=== PATIENT | male | born 1950 | race Caucasian/White ===

== ENCOUNTER 2021-09-14 18:10 | Observation (INO) ==
[2021-09-14] MEDS ORDERED: Furosemide 40 MG/4 ML VIAL IVP ONE (18:24)
[2021-09-14] MEDS ORDERED: methylPREDNISolone 125 MG/2 ML VIAL IVP ONE (18:24)
[2021-09-14] MEDS ORDERED: Ipratropium/Albuterol Neb 3 ML IH ONE (18:24)
[2021-09-14] MEDS ORDERED: Azithromycin 500 MG in 0.9 % Sodium Chloride 250 ML IVPB ONE (18:24)
[2021-09-14] MEDS ORDERED: cefTRIAXone 2,000 MG in 0.9 % Sodium Chloride 10 ML IVP ONE (18:24)
[2021-09-14 18:52] LABS: Basophils % 0.3 %; Eosinophils # 0.2 K/mcL (0.0-0.6); Eosinophils % 2.3 %; Hemoglobin 16.7 g/dL (12.9-16.9); Immature Granulocytes % 0.5 % (0-4); Lymphocytes # 0.3 K/mcL (0.6-4.6); Lymphocytes % 3.5 %; Mean Corpuscular HGB Conc 32.1 g/dL (31.6-35.5); Mean Corpuscular Hemoglobin 31.9 pg (28.0-33.3); Mean Corpuscular Volume 99.2 fL (83.0-100.0); Mean Platelet Volume 11.7 fL (9.4-12.4); Monocytes # 0.7 K/mcL (0.0-1.3); Monocytes % 7.7 %; Neutrophils # 7.5 K/mcL (1.6-8.9); Platelet Count 100 K/mcL (140-400); Red Blood Count 5.24 M/mcL (4.19-5.50); Red Cell Distribution Width 15.3 % (11.5-14.5); Segmented Neutrophils % 85.7 %; White Blood Count 8.8 K/mcL (4.3-11.1)
[2021-09-14 18:58] LABS: INR 1.2; Prothrombin Time 13.7 Seconds (9.4-12.1)
[2021-09-14 19:01] LABS: Activated Partial Thrombo Time 31.4 Seconds (26.0-36.0)
[2021-09-14 19:13] LABS: Alanine Aminotransferase 19 Units/L (7-52); Albumin 3.7 g/dL (3.5-5.7); Albumin/Globulin Ratio 1.3 (1.1-2.2); Alkaline Phosphatase 65 Units/L (34-104); Aspartate Amino Transferase 13 Units/L (13-39); BUN/Creatinine Ratio 11 (6-26); Bilirubin,Direct 0.2 mg/dL (0.0-0.2); Bilirubin,Indirect 0.6 mg/dL (0.0-1.0); Bilirubin,Total 0.8 mg/dL (0.3-1.0); Blood Urea Nitrogen 10 mg/dL (8-23); Calcium 8.9 mg/dL (8.6-10.3); Carbon Dioxide 40 mEq/L (23-29); Chloride 95 mEq/L (98-107); Globulin 2.9 g/dL (2.4-3.5); Glucose 134 mg/dL (70-105); Osmolality,Calculated 291 (280-300); Potassium 3.4 mEq/L (3.5-5.1); Sodium 140 mEq/L (136-145); Total Protein 6.6 g/dL (6.4-8.9); Troponin I < 0.03 ng/mL (< 0.04); eGFR For African Americans > 60 (> 60); eGFR For Non-African Americans > 60 (> 60)
[2021-09-14] MEDS ORDERED: Nitroglycerin 0.4 MG TAB.SUBL SL PRN ×2 (22:14→22:48)
[2021-09-14] MEDS ORDERED: Ibuprofen 400 MG TABLET PO PRN (22:48)
[2021-09-14] MEDS ORDERED: Albuterol 2.5 MG/3 ML NEBULIZER IH PRN (22:48)
[2021-09-14] MEDS ORDERED: Acetaminophen 325 MG TABLET PO PRN (22:48)
[2021-09-14] MEDS ORDERED: Mag Hydrox/Al Hydrox/Simeth 30 ML UDC PO PRN (22:48)
[2021-09-14] MEDS ORDERED: Melatonin 3 MG TABLET PO PRN (22:48)
[2021-09-14] MEDS ORDERED: MOM Conc 10 ML UD.LIQ PO PRN (22:48)
[2021-09-14] MEDS ORDERED: Naloxone 0.4 MG/ML INJ IVP PRN (22:48)
[2021-09-14] MEDS: Ipratropium/Albuterol Neb 3 ML IH SCH (23:03)
[2021-09-14] MEDS: Potassium Chloride Elixir 20 MEQ/15 ML UDC PO SCH (23:05)
[2021-09-15] MEDS: MethylPREDNISolone 40 MG/ML VIAL IVP SCH ×3 (00:07→17:05)
[2021-09-15] MEDS: Ipratropium/Albuterol Neb 3 ML IH SCH ×2 (04:10→09:29)
[2021-09-15] MEDS ORDERED: Furosemide 20 MG/2 ML VIAL IVP SCH (07:00)
[2021-09-15] MEDS: Budesonide/Formoterol 160/4.5 1 PUFF INH IH SCH ×2 (09:29→21:21)
[2021-09-15] MEDS: Aspirin Enteric Coated 81 MG Tablet PO SCH (10:06)
[2021-09-15] MEDS: atenoloL 50 MG TABLET PO SCH (10:06)
[2021-09-15] MEDS: Potassium Chloride Elixir 20 MEQ/15 ML UDC PO SCH ×2 (10:06→20:41)
[2021-09-15] MEDS: hydroCHLOROthiazide 25 MG TABLET PO SCH (10:06)
[2021-09-15] MEDS ORDERED: acetaZOLAMIDE 250 MG in Water for inj. (sterile) 2.5 ML IVP ONE (11:21)
[2021-09-15] MEDS ORDERED: Ipratropium/Albuterol Neb 3 ML IH PRN (11:39)
[2021-09-15] MEDS ORDERED: Perflutren Lipid Microsphere 1.3 ML in 0.9 % Sodium Chloride 8.7 ML IVP PRN (11:40)
[2021-09-15] MEDS: acetaZOLAMIDE 250 MG TABLET PO SCH (13:16)
[2021-09-15] MEDS ORDERED: cefTRIAXone 2,000 MG in 0.9 % Sodium Chloride Mini Bag 100 ML IVPB SCH (15:00)
[2021-09-15] MEDS: Azithromycin 500 MG in 0.9 % Sodium Chloride 250 ML IVPB SCH (15:43)
[2021-09-16] MEDS: MethylPREDNISolone 40 MG/ML VIAL IVP SCH ×3 (00:10→18:15)
[2021-09-16] MEDS: *HR* Enoxaparin 40 MG/0.4 ML SYRINGE SQ SCH (06:25)
[2021-09-16 06:39] LABS: Basophils % 0.1 %; Hematocrit 53.2 % (37.5-50.1); Hemoglobin 16.3 g/dL (12.9-16.9); Immature Granulocytes % 0.7 % (0-4); Lymphocytes # 0.2 K/mcL (0.6-4.6); Mean Corpuscular HGB Conc 30.6 g/dL (31.6-35.5); Mean Corpuscular Hemoglobin 30.9 pg (28.0-33.3); Mean Corpuscular Volume 100.9 fL (83.0-100.0); Mean Platelet Volume 12.3 fL (9.4-12.4); Monocytes # 0.4 K/mcL (0.0-1.3); Monocytes % 2.9 %; Neutrophils # 14.6 K/mcL (1.6-8.9); Platelet Count 107 K/mcL (140-400); Red Blood Count 5.27 M/mcL (4.19-5.50); Red Cell Distribution Width 14.6 % (11.5-14.5); Segmented Neutrophils % 95.3 %; White Blood Count 15.3 K/mcL (4.3-11.1)
[2021-09-16 07:03] LABS: BUN/Creatinine Ratio 20 (6-26); Blood Urea Nitrogen 17 mg/dL (8-23); Calcium 9.5 mg/dL (8.6-10.3); Carbon Dioxide 38 mEq/L (23-29); Chloride 98 mEq/L (98-107); Chol/HDL Ratio 3.1 (0-4.9); Cholesterol 159 mg/dL (< 200); Glucose 137 mg/dL (70-105); HDL Cholesterol 51 mg/dL (40-59); LDL Cholesterol,Calculated 96 mg/dL (< 100); Magnesium 2.2 mg/dL (1.6-2.6); Osmolality,Calculated 292 (280-300); Potassium 4.7 mEq/L (3.5-5.1); Sodium 139 mEq/L (136-145); Triglycerides 62 mg/dL (< 150); eGFR For African Americans > 60 (> 60); eGFR For Non-African Americans > 60 (> 60)
[2021-09-16 07:10] LABS: Platelet Estimate Slight Decrease (Normal)
[2021-09-16] MEDS: Budesonide/Formoterol 160/4.5 1 PUFF INH IH SCH ×2 (07:45→22:15)
[2021-09-16] MEDS: Aspirin Enteric Coated 81 MG Tablet PO SCH (10:10)
[2021-09-16] MEDS: hydroCHLOROthiazide 25 MG TABLET PO SCH (10:11)
[2021-09-16] MEDS: Potassium Chloride Elixir 20 MEQ/15 ML UDC PO SCH ×2 (10:11→21:55)
[2021-09-16] MEDS: acetaZOLAMIDE 250 MG TABLET PO SCH (10:11)
[2021-09-16] MEDS: atenoloL 50 MG TABLET PO SCH (10:11)
[2021-09-16] MEDS: Isosorbide MONOnitrate (24 HR) 30 MG TAB.ER.24H PO SCH (11:28)
[2021-09-16] MEDS: Nicotine 21 MG PATCH.TD24 TD SCH (11:29)
[2021-09-16] MEDS: Azithromycin 500 MG in 0.9 % Sodium Chloride 250 ML IVPB SCH (16:29)
[2021-09-16] MEDS: Ondansetron ODT 4 MG TAB.RAPDIS SL PRN (22:15)
[2021-09-17] MEDS: MethylPREDNISolone 40 MG/ML VIAL IVP SCH ×2 (02:15→10:13)
[2021-09-17] MEDS: *HR* Enoxaparin 40 MG/0.4 ML SYRINGE SQ SCH (06:51)
[2021-09-17] MEDS: Ondansetron ODT 4 MG TAB.RAPDIS SL PRN (07:00)
[2021-09-17 07:14] LABS: Hematocrit 54.7 % (37.5-50.1); Hemoglobin 16.9 g/dL (12.9-16.9); Mean Corpuscular HGB Conc 30.9 g/dL (31.6-35.5); Mean Corpuscular Hemoglobin 31.6 pg (28.0-33.3); Mean Corpuscular Volume 102.4 fL (83.0-100.0); Red Blood Count 5.34 M/mcL (4.19-5.50); Red Cell Distribution Width 14.9 % (11.5-14.5); White Blood Count 15.3 K/mcL (4.3-11.1)
[2021-09-17 07:24] LABS: Platelet Count 40 K/mcL (140-400)
[2021-09-17 07:47] LABS: BUN/Creatinine Ratio 25 (6-26); Blood Urea Nitrogen 27 mg/dL (8-23); Calcium 9.9 mg/dL (8.6-10.3); Carbon Dioxide 40 mEq/L (23-29); Chloride 96 mEq/L (98-107); Glucose 141 mg/dL (70-105); Magnesium 2.4 mg/dL (1.6-2.6); Osmolality,Calculated 295 (280-300); Potassium 5.4 mEq/L (3.5-5.1); Sodium 139 mEq/L (136-145); eGFR For African Americans > 60 (> 60); eGFR For Non-African Americans > 60 (> 60)
[2021-09-17 08:17] LABS: Lymphocytes # 0.3 K/mcL (0.6-4.6); Monocytes # 0.6 K/mcL (0.0-1.3); Neutrophils # 14.4 K/mcL (1.6-8.9); Platelet Estimate Marked Decrease (Normal)
[2021-09-17] MEDS ORDERED: Isosorbide MONOnitrate (24 HR) 30 MG TAB.ER.24H PO SCH (09:00)
[2021-09-17] MEDS: Budesonide/Formoterol 160/4.5 1 PUFF INH IH SCH (09:15)
[2021-09-17 09:18] VITALS: RESP 18
[2021-09-17] MEDS: Nicotine 21 MG PATCH.TD24 TD SCH (10:12)
[2021-09-17] MEDS: acetaZOLAMIDE 250 MG TABLET PO SCH (10:14)
[2021-09-17] MEDS: Potassium Chloride Elixir 20 MEQ/15 ML UDC PO SCH (10:14)
[2021-09-17] MEDS: atenoloL 50 MG TABLET PO SCH (10:14)
[2021-09-17] MEDS: Aspirin Enteric Coated 81 MG Tablet PO SCH (10:14)
[2021-09-17] MEDS: Isosorbide MONOnitrate (24 HR) 30 MG TAB.ER.24H PO SCH (10:16)
[2021-09-17 10:43] VITALS: BP 130/75; PULSE 69; TEMP 98.7; O2SAT 94
[2021-09-17] MEDS ORDERED: hydroCHLOROthiazide 25 MG TABLET PO SCH (17:00)
== END 2021-09-17 13:12 | disposition short-term general hospital (02) ==
LOC: INPPIK 18:10 → EMEROOPIK 18:10 → INPPIK 21:04
PROVIDERS: ADMIT Internal Medicine; ATTEND Internal Medicine

== ENCOUNTER 2021-12-16 16:45 | Inpatient (IN) ==
[2021-12-16] MEDS ORDERED: methylPREDNISolone 125 MG/2 ML VIAL IVP ONE (17:17)
[2021-12-16] MEDS ORDERED: Ipratropium/Albuterol Neb 3 ML IH ONE (17:19)
[2021-12-16 17:39] LABS: Basophils # 0.1 K/mcL (0.0-0.2); Basophils % 0.2 %; Hematocrit 49.7 % (37.5-50.1); Hemoglobin 16.6 g/dL (12.9-16.9); Immature Granulocytes % 1.1 % (0-4); Lymphocytes # 0.3 K/mcL (0.6-4.6); Lymphocytes % 1.2 %; Mean Corpuscular HGB Conc 33.4 g/dL (31.6-35.5); Mean Corpuscular Hemoglobin 31.3 pg (28.0-33.3); Mean Corpuscular Volume 93.8 fL (83.0-100.0); Mean Platelet Volume 11.6 fL (9.4-12.4); Monocytes # 2.3 K/mcL (0.0-1.3); Neutrophils # 20.2 K/mcL (1.6-8.9); Red Cell Distribution Width 14.6 % (11.5-14.5); Segmented Neutrophils % 87.5 %; White Blood Count 23.1 K/mcL (4.3-11.1)
[2021-12-16 17:40] LABS: Platelet Count 82 K/mcL (140-400)
[2021-12-16 17:58] LABS: BUN/Creatinine Ratio 14 (6-26); Blood Urea Nitrogen 10 mg/dL (8-23); Calcium 8.9 mg/dL (8.6-10.3); Carbon Dioxide 36 mEq/L (23-29); Chloride 90 mEq/L (98-107); Glucose 116 mg/dL (70-105); Osmolality,Calculated 280 (280-300); Potassium 3.1 mEq/L (3.5-5.1); Sodium 135 mEq/L (136-145); eGFR For African Americans > 60 (> 60); eGFR For Non-African Americans > 60 (> 60)
[2021-12-16 17:59] LABS: Troponin I < 0.03 ng/mL (< 0.04)
[2021-12-16] MEDS ORDERED: Furosemide 40 MG/4 ML VIAL IVP ONE (18:09)
[2021-12-16] MEDS ORDERED: Azithromycin 500 MG in 0.9 % Sodium Chloride 250 ML IVPB ONE (18:50)
[2021-12-16] MEDS ORDERED: cefTRIAXone 1,000 MG in 0.9 % Sodium Chloride Mini Bag 100 ML IVPB ONE (18:50)
[2021-12-16] MEDS ORDERED: Acetaminophen 325 MG TABLET PO PRN ×2 (19:32→21:08)
[2021-12-16] MEDS ORDERED: Ondansetron 4 MG/2 ML VIAL IVP PRN ×2 (19:32→21:08)
[2021-12-16] MEDS ORDERED: Naloxone 0.4 MG/ML INJ IVP PRN ×2 (19:32→21:08)
[2021-12-16] MEDS ORDERED: Ipratropium/Albuterol Neb 3 ML IH PRN ×2 (19:35→21:08)
[2021-12-16] MEDS ORDERED: Potassium Chloride Elixir 20 MEQ/15 ML UDC PO ONE ×2 (19:51→21:08)
[2021-12-16] MEDS ORDERED: Albuterol 2.5 MG/3 ML NEBULIZER IH PRN (21:08)
[2021-12-16] MEDS: Budesonide/Formoterol 80/4.5 1 PUFF INH IH SCH (21:27)
[2021-12-17] MEDS ORDERED: methylPREDNISolone 125 MG/2 ML VIAL IVP SCH
[2021-12-17] MEDS: methylPREDNISolone 125 MG/2 ML VIAL IVP SCH ×4 (01:09→21:03)
[2021-12-17 07:13] LABS: Basophils % 0.2 %; Eosinophils # 0.1 K/mcL (0.0-0.6); Eosinophils % 0.3 %; Hematocrit 52.1 % (37.5-50.1); Hemoglobin 17.1 g/dL (12.9-16.9); Immature Granulocytes % 0.6 % (0-4); Lymphocytes % 0.6 %; Mean Corpuscular HGB Conc 32.8 g/dL (31.6-35.5); Mean Corpuscular Hemoglobin 31.3 pg (28.0-33.3); Mean Corpuscular Volume 95.4 fL (83.0-100.0); Monocytes # 0.7 K/mcL (0.0-1.3); Monocytes % 2.9 %; Neutrophils # 22.8 K/mcL (1.6-8.9); Red Blood Count 5.46 M/mcL (4.19-5.50); Red Cell Distribution Width 14.6 % (11.5-14.5); Segmented Neutrophils % 95.4 %; White Blood Count 23.9 K/mcL (4.3-11.1)
[2021-12-17 07:24] LABS: INR 1.4
[2021-12-17 07:27] LABS: Basophils # 0.1 K/mcL (0.0-0.2); Lymphocytes # 0.1 K/mcL (0.6-4.6); Platelet Count 49 K/mcL (140-400)
[2021-12-17 08:03] LABS: BUN/Creatinine Ratio 13 (6-26); Blood Urea Nitrogen 12 mg/dL (8-23); Calcium 9.2 mg/dL (8.6-10.3); Carbon Dioxide 43 mEq/L (23-29); Chloride 87 mEq/L (98-107); Glucose 157 mg/dL (70-105); Magnesium 1.8 mg/dL (1.6-2.6); Osmolality,Calculated 291 (280-300); Phosphorous 4.7 mg/dL (2.7-4.5); Potassium 3.2 mEq/L (3.5-5.1); Sodium 139 mEq/L (136-145); eGFR For African Americans > 60 (> 60); eGFR For Non-African Americans > 60 (> 60)
[2021-12-17 08:50] LABS: Platelet Estimate Decreased (Normal)
[2021-12-17] MEDS: atenoloL 50 MG TABLET PO SCH (08:52)
[2021-12-17] MEDS: cefTRIAXone 1,000 MG in 0.9 % Sodium Chloride Mini Bag 100 ML IVPB SCH (09:01)
[2021-12-17] MEDS: Budesonide/Formoterol 80/4.5 1 PUFF INH IH SCH ×2 (09:41→21:47)
[2021-12-17] MEDS: Azithromycin 500 MG in 0.9 % Sodium Chloride 250 ML IVPB SCH (09:58)
[2021-12-17 18:12] LABS: Adenovirus Not Detected (Not Detect); Bordetella Pertussis Not Detected (Not Detect); Chlamydophila pneumoniae Not Detected (Not Detect); Coronavirus 229E Not Detected (Not Detect); Coronavirus HKU1 Not Detected (Not Detect); Coronavirus NL63 Not Detected (Not Detect); Coronavirus OC43 Not Detected (Not Detect); Human Metapneumovirus Not Detected (Not Detect); Human Rhinovirus/Enterovirus Not Detected (Not Detect); Influenza A Subtype 2009 H1 Not Detected (Not Detect); Influenza B Not Detected (Not Detect); Mycoplasma pneumoniae Not Detected (Not Detect); Parainfluenza Virus 1 Not Detected (Not Detect); Parainfluenza Virus 2 Not Detected (Not Detect); Parainfluenza Virus 3 Not Detected (Not Detect); Parainfluenza Virus 4 Not Detected (Not Detect); Respiratory Syncytial Virus Not Detected (Not Detect); SARS-CoV-2 Not Detected (Not Detect)
[2021-12-17] MEDS ORDERED: cefTRIAXone 1,000 MG in 0.9 % Sodium Chloride 10 ML IVPB SCH (19:00)
[2021-12-17] MEDS ORDERED: Azithromycin 500 MG in 0.9 % Sodium Chloride 250 ML IVPB SCH (19:00)
[2021-12-18] MEDS: Ipratropium/Albuterol Neb 3 ML IH SCH ×6 (00:32→20:09)
[2021-12-18 01:11] LABS: Bilirubin,Urine Negative (Negative); Blood,Urine Negative (Negative); Clarity,Urine Clear (Clear); Color,Urine Yellow (Yellow); Glucose,Urine (UA) Normal (Normal); Ketones,Urine Negative (Negative); Leukocyte Esterase,Urine Negative (Negative); Nitrite,Urine Negative (Negative); PH,Urine 5.5 pH Units (5.0-8.0); Protein,Urine Negative (Neg-Trace); Urobilinogen,Urine Normal (Normal)
[2021-12-18 06:35] LABS: Hemoglobin 15.8 g/dL (12.9-16.9); Mean Corpuscular HGB Conc 31.6 g/dL (31.6-35.5); Mean Corpuscular Volume 98.2 fL (83.0-100.0); Mean Platelet Volume 13.7 fL (9.4-12.4); Red Blood Count 5.09 M/mcL (4.19-5.50); Red Cell Distribution Width 14.4 % (11.5-14.5); White Blood Count 25.1 K/mcL (4.3-11.1)
[2021-12-18 06:43] LABS: Platelet Count 35 K/mcL (140-400)
[2021-12-18 07:08] LABS: BUN/Creatinine Ratio 25 (6-26); Blood Urea Nitrogen 19 mg/dL (8-23); Calcium 9.3 mg/dL (8.6-10.3); Carbon Dioxide 44 mEq/L (23-29); Chloride 90 mEq/L (98-107); Glucose 141 mg/dL (70-105); Osmolality,Calculated 291 (280-300); Potassium 3.2 mEq/L (3.5-5.1); Sodium 138 mEq/L (136-145); eGFR For African Americans > 60 (> 60); eGFR For Non-African Americans > 60 (> 60)
[2021-12-18] MEDS: Budesonide/Formoterol 80/4.5 1 PUFF INH IH SCH ×2 (07:51→20:09)
[2021-12-18] MEDS: atenoloL 50 MG TABLET PO SCH (10:52)
[2021-12-18] MEDS: Azithromycin 500 MG in 0.9 % Sodium Chloride 250 ML IVPB SCH (10:54)
[2021-12-18] MEDS: methylPREDNISolone 125 MG/2 ML VIAL IVP SCH ×2 (10:56→20:58)
[2021-12-18] MEDS: cefTRIAXone 1,000 MG in 0.9 % Sodium Chloride Mini Bag 100 ML IVPB SCH (10:57)
[2021-12-18] MEDS: Cholecalciferol (D-3) 1,000 UNIT (25MCG) TABLET PO SCH (10:58)
[2021-12-18] MEDS: acetaZOLAMIDE 250 MG TABLET PO SCH ×2 (16:32→20:58)
[2021-12-19] MEDS: Ipratropium/Albuterol Neb 3 ML IH SCH ×6 (00:36→21:21)
[2021-12-19] MEDS: Budesonide/Formoterol 80/4.5 1 PUFF INH IH SCH ×2 (08:39→21:21)
[2021-12-19 08:46] LABS: Hematocrit 47.6 % (37.5-50.1); Hemoglobin 15.2 g/dL (12.9-16.9); Mean Corpuscular HGB Conc 31.9 g/dL (31.6-35.5); Mean Corpuscular Volume 96.9 fL (83.0-100.0); Mean Platelet Volume 12.6 fL (9.4-12.4); Red Blood Count 4.91 M/mcL (4.19-5.50); Red Cell Distribution Width 14.6 % (11.5-14.5); White Blood Count 19.9 K/mcL (4.3-11.1)
[2021-12-19 08:59] LABS: BUN/Creatinine Ratio 23 (6-26); Blood Urea Nitrogen 20 mg/dL (8-23); Calcium 9.1 mg/dL (8.6-10.3); Carbon Dioxide 39 mEq/L (23-29); Chloride 95 mEq/L (98-107); Glucose 119 mg/dL (70-105); Osmolality,Calculated 294 (280-300); Potassium 3.7 mEq/L (3.5-5.1); Sodium 140 mEq/L (136-145); eGFR For African Americans > 60 (> 60); eGFR For Non-African Americans > 60 (> 60)
[2021-12-19 09:04] LABS: Platelet Count 29 K/mcL (140-400)
[2021-12-19] MEDS: Cholecalciferol (D-3) 1,000 UNIT (25MCG) TABLET PO SCH (10:50)
[2021-12-19] MEDS: atenoloL 50 MG TABLET PO SCH (10:50)
[2021-12-19] MEDS: methylPREDNISolone 125 MG/2 ML VIAL IVP SCH (10:51)
[2021-12-19] MEDS: acetaZOLAMIDE 250 MG TABLET PO SCH ×2 (10:51→20:06)
[2021-12-19] MEDS: cefTRIAXone 1,000 MG in 0.9 % Sodium Chloride Mini Bag 100 ML IVPB SCH (10:53)
[2021-12-19] MEDS: Azithromycin 500 MG in 0.9 % Sodium Chloride 250 ML IVPB SCH (10:54)
[2021-12-20] MEDS: Ipratropium/Albuterol Neb 3 ML IH SCH ×4 (00:21→12:47)
[2021-12-20 07:14] VITALS: BP 151/86; PULSE 72; RESP 18; TEMP 97.8
[2021-12-20 08:01] LABS: Hematocrit 50.7 % (37.5-50.1); Hemoglobin 16.4 g/dL (12.9-16.9); Mean Corpuscular HGB Conc 32.3 g/dL (31.6-35.5); Mean Corpuscular Hemoglobin 31.6 pg (28.0-33.3); Mean Corpuscular Volume 97.7 fL (83.0-100.0); Mean Platelet Volume 11.1 fL (9.4-12.4); Red Blood Count 5.19 M/mcL (4.19-5.50); Red Cell Distribution Width 14.9 % (11.5-14.5); White Blood Count 12.8 K/mcL (4.3-11.1)
[2021-12-20 08:07] LABS: Platelet Count 10 K/mcL (140-400)
[2021-12-20 08:29] LABS: BUN/Creatinine Ratio 25 (6-26); Blood Urea Nitrogen 22 mg/dL (8-23); Calcium 9.4 mg/dL (8.6-10.3); Carbon Dioxide 37 mEq/L (23-29); Chloride 98 mEq/L (98-107); Glucose 99 mg/dL (70-105); Osmolality,Calculated 291 (280-300); Potassium 4.4 mEq/L (3.5-5.1); Sodium 139 mEq/L (136-145); eGFR For African Americans > 60 (> 60); eGFR For Non-African Americans > 60 (> 60)
[2021-12-20] MEDS: cefTRIAXone 1,000 MG in 0.9 % Sodium Chloride Mini Bag 100 ML IVPB SCH (08:34)
[2021-12-20] MEDS: Azithromycin 500 MG in 0.9 % Sodium Chloride 250 ML IVPB SCH (08:34)
[2021-12-20] MEDS: acetaZOLAMIDE 250 MG TABLET PO SCH (08:36)
[2021-12-20] MEDS: Cholecalciferol (D-3) 1,000 UNIT (25MCG) TABLET PO SCH (08:36)
[2021-12-20] MEDS: atenoloL 50 MG TABLET PO SCH (08:36)
[2021-12-20 08:53] VITALS: O2SAT 96
[2021-12-20] MEDS: Budesonide/Formoterol 80/4.5 1 PUFF INH IH SCH (08:53)
[2021-12-20] MEDS ORDERED: predniSONE 20 MG TABLET PO SCH (09:00)
== END 2021-12-20 12:10 | disposition home health service (06) | DRG 193 ==
LOC: EMEROOPIK 16:45 → INPPIK 16:45
PROVIDERS: ADMIT Student in an Organized Health Care Education/Training Program; ATTEND Student in an Organized Health Care Education/Training Program